=== PATIENT | female | born 1960 | race Caucasian/White ===

== ENCOUNTER 2022-05-02 13:30 | Emergency (ER) | payer OTHER ==
[~2022-05-02] VITALS: Ht 162.6 cm; Wt 130.2 kg
[2022-05-02 15:30] LABS: BASOPHILS ABSOLUTE AUTO 0.09 K/mm3 (0.00-0.23); BASOPHILS PERCENT AUTO 1 % (0-2); EOSINOPHILS ABSOLUTE AUTO 0.33 K/mm3 (0.00-0.68); EOSINOPHILS PERCENT AUTO 3 % (0-6); Hematocrit 33.9 % (33.0-51.0); Hemoglobin 11.2 g/dL (11.5-16.0); IMMATURE GRAN ABSOLUTE AUTO 0.12 K/mm3 (0.00-0.10); IMMATURE GRAN PERCENT AUTO 1 % (0-1); LYMPHOCYTES ABSOLUTE AUTO 3.17 K/mm3 (0.84-5.20); LYMPHOCYTES PERCENT AUTO 25 % (21-46); MONOCYTES ABSOLUTE AUTO 0.69 K/mm3 (0.16-1.47); MONOCYTES PERCENT AUTO 5 % (4-13); Mean Corpuscular HGB 28.2 pg (26.0-34.0); Mean Corpuscular Volume 85 fL (80-100); Mean Platelet Volume 11.4 fL (9.1-12.4); NEUTROPHILS ABSOLUTE AUTO 8.56 K/mm3 (1.96-9.15); NEUTROPHILS PERCENT AUTO 66 % (41-73); NRBC ABSOLUTE 0.03 K/mm3 (0.00-0.02); NRBC Auto 0.2 /100 WBC (0.0-0.2); Platelet Count 207 K/mm3 (150-400); RDW Coefficient Variation 14.8 % (11.7-14.2); RDW Standard Deviation 46.6 fL (35.1-46.3); Red Blood Cell Count 3.97 M/mm3 (3.80-5.20); White Blood Cell Count 12.96 K/mm3 (4.00-11.30)
[2022-05-02 15:38] LABS: Albumin, Blood 3.6 g/dL (3.4-5.0); Albumin/Globulin Ratio 1.1 (0.8-1.8); Bilirubin, Total 0.2 mg/dL (0.1-1.0); Bun/Creatinine Ratio 33.1 (12.0-20.0); Calcium, Blood 9.7 mg/dL (8.5-10.1); Creatinine, Blood 0.54 mg/dL (0.40-1.00); Globulin, Blood 3.4 g/dL (2.2-4.0); Potassium, Blood 4.4 mmol/L (3.5-5.5)
[2022-05-02] MEDS ORDERED: METFORMIN HCL500 M3 PO (18:10)
[2022-05-02] MEDS ORDERED: LOSA25 (18:11)
[2022-05-02] MEDS ORDERED: CELEXA40 M9 PO (18:11)
[2022-05-02] MEDS ORDERED: omeprazole 20 mg cap (18:11)
[2022-05-02] MEDS ORDERED: OZEMPIC1 MG/0.72 SQ (18:12)
[2022-05-02] MEDS ORDERED: MELOXICAM 15 MG (18:12)
[2022-05-02] MEDS ORDERED: NEURONTIN300 MG PO (18:12)
== END 2022-05-02 18:32 | disposition home or self-care (01) ==
LOC: ER 13:30
PROVIDERS: Physician Assistant
DX: K64.4 Residual hemorrhoidal skin tags (principal); D64.9 Anemia, unspecified; E11.9 Type 2 diabetes mellitus without complications; I11.0 Hypertensive heart disease with heart failure; I50.9 Heart failure, unspecified; Z88.8 Allergy status to other drugs, medicaments and biological substances
CPT/HCPCS: 36415; 80053; 83690; 85025

== ENCOUNTER 2022-11-30 11:05 | Inpatient (IN) | payer OTHER ==
[~2022-11-30] VITALS: Ht 162.6 cm; Wt 131.4 kg
[~2022-11-30 11:05] MED LIST changes: -ACET325 PO; -Ativan1 MG PO; -DOCU100 PO; -LOSA25 PO; -METO100ER PO; -PROP10 PO; -TRAZ50 PO
[2022-11-30 11:56] LABS: BASOPHILS ABSOLUTE AUTO 0.06 K/mm3 (0.00-0.23); BASOPHILS PERCENT AUTO 1 % (0-2); EOSINOPHILS PERCENT AUTO 3 % (0-6); Hematocrit 41.7 % (33.0-51.0); Hemoglobin 13.4 g/dL (11.5-16.0); IMMATURE GRAN ABSOLUTE AUTO 0.02 K/mm3 (0.00-0.10); IMMATURE GRAN PERCENT AUTO 0 % (0-1); LYMPHOCYTES ABSOLUTE AUTO 2.33 K/mm3 (0.84-5.20); LYMPHOCYTES PERCENT AUTO 26 % (21-46); MONOCYTES PERCENT AUTO 6 % (4-13); Mean Corpuscular HGB 26.2 pg (26.0-34.0); Mean Corpuscular HGB Conc 32.1 g/dL (31.5-36.5); Mean Corpuscular Volume 81 fL (80-100); NEUTROPHILS ABSOLUTE AUTO 5.82 K/mm3 (1.96-9.15); NEUTROPHILS PERCENT AUTO 65 % (41-73); Platelet Count 245 K/mm3 (150-400); RDW Coefficient Variation 16.8 % (11.7-14.2); RDW Standard Deviation 49.3 fL (35.1-46.3); Red Blood Cell Count 5.12 M/mm3 (3.80-5.20); White Blood Cell Count 9.03 K/mm3 (4.00-11.30)
[2022-11-30 12:11] LABS: Magnesium, Blood 1.8 mg/dL (1.6-2.4)
[2022-11-30 12:13] LABS: Albumin, Blood 3.4 g/dL (3.4-5.0); Albumin/Globulin Ratio 0.8 (0.8-1.8); Bilirubin, Total 0.6 mg/dL (0.1-1.0); Bun/Creatinine Ratio 25.7 (12.0-20.0); Calcium, Blood 9.2 mg/dL (8.5-10.1); Creatinine, Blood 0.55 mg/dL (0.40-1.00); Globulin, Blood 4.2 g/dL (2.2-4.0); Total Protein, Blood 7.6 g/dL (6.4-8.2)
[2022-11-30 13:17] LABS: Potassium, Blood 6.2 mmol/L (3.5-5.5)
[2022-11-30 16:04] LABS: Bun/Creatinine Ratio 17.8 (12.0-20.0); Calcium, Blood 10.2 mg/dL (8.5-10.1); Creatinine, Blood 0.67 mg/dL (0.40-1.00); Potassium, Blood 4.3 mmol/L (3.5-5.5)
[2022-11-30] MEDS ORDERED: NEURONTIN300 MG PO ×2 (22:15)
[2022-11-30] MEDS ORDERED: CELEXA40 M9 PO ×2 (22:19)
[2022-11-30] MEDS ORDERED: METO100ER PO ×2 (22:24)
[2022-12-01] VITALS (7 sets, daily range): BP systolic 138–170; BP diastolic 55–92
[2022-12-01 04:22] LABS: BASOPHILS ABSOLUTE AUTO 0.06 K/mm3 (0.00-0.23); BASOPHILS PERCENT AUTO 1 % (0-2); EOSINOPHILS ABSOLUTE AUTO 0.25 K/mm3 (0.00-0.68); EOSINOPHILS PERCENT AUTO 3 % (0-6); Hematocrit 37.5 % (33.0-51.0); Hemoglobin 11.7 g/dL (11.5-16.0); IMMATURE GRAN ABSOLUTE AUTO 0.02 K/mm3 (0.00-0.10); IMMATURE GRAN PERCENT AUTO 0 % (0-1); LYMPHOCYTES ABSOLUTE AUTO 2.84 K/mm3 (0.84-5.20); LYMPHOCYTES PERCENT AUTO 31 % (21-46); MONOCYTES ABSOLUTE AUTO 0.71 K/mm3 (0.16-1.47); MONOCYTES PERCENT AUTO 8 % (4-13); Mean Corpuscular HGB 25.7 pg (26.0-34.0); Mean Corpuscular HGB Conc 31.2 g/dL (31.5-36.5); Mean Corpuscular Volume 82 fL (80-100); NEUTROPHILS ABSOLUTE AUTO 5.22 K/mm3 (1.96-9.15); NEUTROPHILS PERCENT AUTO 57 % (41-73); Platelet Count 229 K/mm3 (150-400); RDW Coefficient Variation 16.2 % (11.7-14.2); RDW Standard Deviation 49.1 fL (35.1-46.3); Red Blood Cell Count 4.55 M/mm3 (3.80-5.20)
[2022-12-01 04:57] LABS: Magnesium, Blood 1.9 mg/dL (1.6-2.4)
[2022-12-01 04:58] LABS: Albumin/Globulin Ratio 0.9 (0.8-1.8); Bilirubin, Total 0.2 mg/dL (0.1-1.0); Bun/Creatinine Ratio 27.1 (12.0-20.0); Calcium, Blood 8.9 mg/dL (8.5-10.1); Creatinine, Blood 0.7 mg/dL (0.40-1.00); Globulin, Blood 3.4 g/dL (2.2-4.0); Total Protein, Blood 6.4 g/dL (6.4-8.2)
--- NOTE | 2022-12-01 05:15 | NUR ---
SHIFT SUMMARY PATIENT NEW ADMIT AT 2200 LAST NIGHT. TRANSFERS TO BED WITH 1 ASSIST. PATIENT VITALS STABLE AND DENIES SOB, CP, LIGHT HEADEDNESS/DIZZINESS. PATIENT DOES REPORT "FEELING EXHAUSETED". IV IN BILAT HANDS SALINE LOCKED. ABLE TO SWALLOW PILLS WHOLE WITH WATER. VOIDING USING BSC. TELE IN PLACE SR 80. NO ACUTE EVENTS. PATIENT ON 2 L NC WHILE SLEEPING SATS ABOVE 90%. BP STABLE CALL LIGHT IN REACH. WILL REPORT TO DAY RN.
--- NOTE | 2022-12-01 11:37 | NUR ---
PT UPDATE THIS RN SPOKE WITH PT REGARDING CURRENT CONDITION. PT APPEARED EMOTIONAL AND STATED THAT SHE FELT SHE HAS BEEN UNDER A TREMENDOUS AMOUNT OF STRESS AT HOME. 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 PT STATES SHE IS NOT READY TO LEAVE HER JOB IT IS SOMETHING SHE IS PASSIONATE ABOUT; DISCUSSED COPING STRATEGIES FOR STRESS AND POTENTIAL RESOURCES FOR STRESS MNGMNT. PT STATES THAT SHE IS NOW DOUBLE COVERED FOR INSURANCE, SO SHE CAN REFILL HER MEDICATIONS THAT HAVE BEEN OUT. DISCUSSED SPIRITUAL CARE VISIT PT INFORMED THIS RN THAT PRAYER IS HER MAIN COPING MECHANISM FOR STRESS; PT AGREED. SPIRITUAL CARE AT BEDSIDE AT THIS TIME. ANTICIPATING EEG AT 1330, DR. BAUTISTA TO DISCUSS RESULTS W/ PT FOLLOWING EEG.
--- NOTE | 2022-12-01 13:06 | NUR ---
Upon receiving a referral for spiritual care, I visited the patient. Her spouse Vince is bedside. She talks at length about the many stressors in her life, the loss of two very close family members and the five grandkids that she and Vince have been raising. 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 I normalize her experience, reinforce helpful attitudes and practices and provide therpaeutic listening, anxiety containment and prayer. Patient responded well and showed signs of reduced stress. We also worked on a spiritual care plan for after her d/c. I will continue to remain available to patient and family.
--- NOTE | 2022-12-01 17:27 | NUR ---
END OF SHIFT NOTE PT A&OX4, ABLE TO CALL APPROPRIATELY AND MAKE NEEDS KNOWN TO STAFF. Q4 NEURO CHECKS COMPLETED, REMAIN UNCHANGED FROM INITIAL ASSESSMENT. HR 70-80'S, NSR. SBP 140-150'S. SPO2 >92% ON RA-2L. PT DESATS WHILE SLEEPING ON RA, SPO2 STABLE ON 2L NC. PT ABLE TO AMBULATE WITH SBA TO RESTROOM, ABLE TO SHOWER THIS PM. UP TO CHAIR FOR DINNER FOLLOWING EEG. MRI SCREENING COMPLETED. NO ACUTE CHANGES THIS SHIFT, SEE PREVIOUS ASSESSMENT REGARDING PT STRESS MANAGEMENT. SPOUSE AT BEDSIDE, STIMULATION KEPT LOW THIS SHIFT. PT COMPLIANT WITH ALL PRESCRIBED MEDICATIONS TODAY. MEDICATED WITH TYLENOL PER EMAR FOR HEAD/BACK PAIN; LIDOCAINE PATCH REMOVED. CALL LIGHT WITHIN REACH, NO FURTHER NEEDS AT THIS TIME.
--- NOTE | 2022-12-01 22:22 | NUR ---
ASSUMPTION OF CARE ASSUMED CARE IN RN REPORT. SUNDEEP. PLEASANT, TEARFUL AT TIMES SHE IS PROCESSING HOME SITUATIONS WELL HAVING SEIZURES. THIS RN PROVIDED THERAPEUTIC LISTENING. PT VSS BESIDES HTN, MEDS PER EMAR, SBP <160 NOW. PT W/O SZ ACTIVITY AT THIS TIME. WENT TO MRI AT SHIFT CHANGE, RETURNED W/O INCIDENT VIA WC. PT RESTING IN BED POST MED ADMINISTRATION. BED ALARM ON.
--- NOTE | 2022-12-01 23:45 | NUR ---
transfer of care SEE PREVIOUS NOTE. NO CHANGES. STATIUS CHANGED TO MEDICAL WITH TELE. REPORT GIVEN TO BARRETT Alcaraz RN. TRANSFERED TO [facility] @ [id number].
[2022-12-02 00:02] VITALS: BP 162/97
--- NOTE | 2022-12-02 01:45 | NUR ---
ASSUMED CARE OF PATIENT UPON HER TRANSFER FROM PCU 20 AT 2348. ARRIVED TO MEDICAL FLOOR VIA W/C, TRANSFERRED TO BED WITH 1 PERSON ASSIST. USED BR WITH 1 PERSON ASSIST, GAIT A BIT UNSTEADY. TEARFUL AND ANXIOUS; THIS AUTHOR SPENT ABOUT 1 HOUR TALKING TO PATIENT ABOUT HER STRESSORS AND DX OF PSEUDOSEIZURES. GOT HER COMFORTABLE AND ADVISED HER TO GET SOME SLEEP. CALL LIGHT AND BELONGINGS IN REACH.
[2022-12-02 05:03] VITALS: BP 143/62
--- NOTE | 2022-12-02 05:38 | NUR ---
SHIFT SUMMARY: NO ACUTE EVENTS SINCE TRANSFER FROM PCU. NO EVENTS ON TELEMETRY, SR 80'S. NO SEIZURE ACTIVITY NOTED. AMBULATING TO BR WITH SBA, STATED SHE FEELS "WOBBLY." OFFERED PASTORAL CARE TO COME TALK WITH HER TODAY. SLEPT WELL.
[2022-12-02 07:30] VITALS: BP 138/62
[2022-12-02] MEDS ORDERED: ACET325 PO ×2 (14:31)
[2022-12-02] MEDS ORDERED: LOSA25 PO ×2 (14:33)
[2022-12-02] MEDS ORDERED: DOCU100 PO ×2 (14:34)
[2022-12-02] MEDS ORDERED: Ativan1 MG PO ×2 (14:35)
[2022-12-02] MEDS ORDERED: PROP10 PO ×2 (14:37)
[2022-12-02] MEDS ORDERED: TRAZ50 PO ×2 (14:39)
--- NOTE | 2022-12-02 15:42 | NUR ---
DC HOME WRITTEN & VERBAL DC INSTRUCTIONS GIVEN TO PT WITH PRESENT, BOTH VERBALIZED GOOD UNDERSTANDING. ALL CONCERNS & QUESTIONS ADDRESSED. PIV DC'D WITH CATH TIP INTACT, NO REDNESS OR SWELLING NOTED. 2 SCRIPTS PROVIDED TO PT 1 FOR MEDICATION & OTHER FOR WORK RELEASE. COPIES MADE & ON CHART. ALL OTHER NEW SCRIPTS FAXED TO [facility] IN [place] PER PT REQUEST. PT TO PV VIA W/C WITH ALL PERSONAL BELONGINGS ACCOMPANIED BY .
== END 2022-12-02 16:07 | disposition home or self-care (01) | DRG 101 ==
LOC: ER 11:05 → PCU 15:43 → MEDS 15:43 → ERHOLD 15:43 → PCU 22:00 → MEDS 12-01 23:43 → ENPENDDIS 12-02 12:49 → MEDS 12-02 16:07
PROVIDERS: Emergency Medicine; ADMIT Family Medicine
DX: R56.9 Unspecified convulsions (principal); Z68.42 Body mass index [BMI] 45.0-49.9, adult; I50.32 Chronic diastolic (congestive) heart failure; E87.5 Hyperkalemia; G43.909 Migraine, unspecified, not intractable, without status migrainosus; K21.9 Gastro-esophageal reflux disease without esophagitis; I11.0 Hypertensive heart disease with heart failure; G25.0 Essential tremor; I27.20 Pulmonary hypertension, unspecified; R00.0 Tachycardia, unspecified; M53.3 Sacrococcygeal disorders, not elsewhere classified; E66.9 Obesity, unspecified; F41.9 Anxiety disorder, unspecified; J44.9 Chronic obstructive pulmonary disease, unspecified; E78.5 Hyperlipidemia, unspecified; E11.40 Type 2 diabetes mellitus with diabetic neuropathy, unspecified; E04.2 Nontoxic multinodular goiter; G47.33 Obstructive sleep apnea (adult) (pediatric); K76.0 Fatty (change of) liver, not elsewhere classified; D32.0 Benign neoplasm of cerebral meninges; Z90.710 Acquired absence of both cervix and uterus; Z90.722 Acquired absence of ovaries, bilateral; Z90.79 Acquired absence of other genital organ(s); Z90.89 Acquired absence of other organs; Z88.8 Allergy status to other drugs, medicaments and biological substances; Z86.011 Personal history of benign neoplasm of the brain; Z79.84 Long term (current) use of oral hypoglycemic drugs; Z86.16 Personal history of COVID-19; Z91.199 Patient's noncompliance with other medical treatment and regimen due to unspecified reason
CPT/HCPCS: 36415; 70450; 70553; 71046; 76705; 80048; 80053; 82947; 83036; 83735; 84132; 85025; 93005; 93010; 94644; 94664; 94762; 95819; 96374; 96375; 99285-25; A9270; A9579; J0612; J1650; J1815; J1885; J1953; J7799

== ENCOUNTER → 2022-11-30 | Outpatient (CLI) | payer OTHER ==
[~2022-11-30] MED LIST: ACET325 PO; Ativan1 MG PO; CELEXA40 M9 PO; DOCU100 PO; LOSA25; LOSA25 PO; MELOXICAM 15 MG; METFORMIN HCL500 M3 PO; METO100ER PO; NEURONTIN300 MG PO; OZEMPIC1 MG/0.72 SQ; PROP10 PO; TRAZ50 PO; omeprazole 20 mg cap
[2022-11-30 10:29] LABS: Albumin, Blood 3.6 g/dL (3.4-5.0); Albumin/Globulin Ratio 0.8 (0.8-1.8); Bilirubin, Total 0.5 mg/dL (0.1-1.0); Bun/Creatinine Ratio 21.9 (12.0-20.0); Calcium, Blood 9.6 mg/dL (8.5-10.1); Creatinine, Blood 0.73 mg/dL (0.40-1.00); Globulin, Blood 4.4 g/dL (2.2-4.0); Magnesium, Blood 1.8 mg/dL (1.6-2.4); Potassium, Blood 4.8 mmol/L (3.5-5.5)
== END ==
LOC: LAB SHORT 10:02 → LAB 10:02
PROVIDERS: Chiropractor
DX: R56.9 Unspecified convulsions (principal)
CPT/HCPCS: 80053; 83735; 84146

== ENCOUNTER 2022-12-25 14:21 | Inpatient (IN) | payer OTHER ==
[~2022-12-25] VITALS: Ht 162.6 cm; Wt 131.9 kg
[~2022-12-25 14:21] MED LIST changes: -BACL10 PO; -ELIQUIS5 M2 PO; -Hydroxyzine HCl50 MG PO; -VALA500 PO
[2022-12-25] MEDS ORDERED: VALA500 PO (14:54)
[2022-12-25] MEDS ORDERED: Hydroxyzine HCl50 MG PO (14:54)
[2022-12-25 20:28] VITALS: BP 199/82
[2022-12-25 23:29] VITALS: BP 157/67
[2022-12-26 04:59] VITALS: BP 144/66
[2022-12-26 05:35] LABS: Bun/Creatinine Ratio 22.2 (12.0-20.0); Calcium, Blood 9.3 mg/dL (8.5-10.1); Creatinine, Blood 0.77 mg/dL (0.40-1.00); Potassium, Blood 3.8 mmol/L (3.5-5.5)
--- NOTE | 2022-12-26 06:39 | NUR ---
Rn summary: Patient arrived after 1999 from the ED via stretcher. Patient was able to transfer self to the bed and the BSC. Pt voiding clear yellow urine. Patient is SOB with activity and just with talking. Patient started on lovenox for tomeka small kjP.E.'s tomeka lower lungs. Pt was here recently for seizure activity. Pt has some lower extremity edema, 2 plus. O2 sat is low 90's on 2 liters. Breath sounds are very diminshed throughout. Patient states she rested really well. Call light in reach and able to make needs known.
[2022-12-26 07:38] VITALS: BP 149/61
[2022-12-26 15:15] VITALS: BP 158/73
--- NOTE | 2022-12-26 18:15 | NUR ---
SHIFT SUMMARY; PATIENT COOPERATIVE WITH CARE AND HAS PLEASANT AFFECT THROUGHOUT THE DAY. SHE RECEIVED AN ULTRASOUND OF HER BILATERAL LEGS TODAY TO CHECK FOR DVT' AND BLOOD FLOW. BOTH WERE UNREMARKABLE. PATIENT IS INDEPENDANT TO BATHROOMO USING FWW. SHE REMAINS ON 2 LITERS O2 VIA NASAL CANNULA. HER SPOUSE IS NOTED TO ASSIST HER WHEN HE IS IN ROOM. OTHERWISE SHE DOES CALL FOR ASSIST. HER CHEMBG WAS LOW A 95 THIS AFTERNOON AND SHE DID NOT RECEIVE ANY INSULIN. SHE HAS A GOOD APPETITE. SHE REMAINS IN SINUS RHYTHM. DENIES ANY CHEST PAIN OR PRESSURE.
[2022-12-26 19:33] VITALS: BP 150/71
--- NOTE | 2022-12-27 04:52 | NUR ---
SHIFT SUMMARY 62 YR F ADMITTED ON 12/25/22 FOR PULMONARY EMBOLISMS. FULL CODE. NO ACUTE CHANGES THIS SHIFT. PT APPEARED ANXIOUS AT BEGINNING OF SHIFT BUT WAS ABLE TO GO TO SLEEP AND STAY ASLEEP FOR MOST OF THIS SHIFT. SHE IS INDEPENDANT TO THE BATHROOM BUT IS STILL DESATING W/ EXERTION. NO EVIDENCE OF SEIZURE ACTIVITY THIS SHIFT.
[2022-12-27 08:13] VITALS: BP 157/78
[2022-12-27 09:20] VITALS: BP 187/91
[2022-12-27 09:34] VITALS: BP 174/75
[2022-12-27 11:46] LABS: Albumin, Blood 3.4 g/dL (3.4-5.0); Albumin/Globulin Ratio 0.9 (0.8-1.8); Bilirubin, Total 0.4 mg/dL (0.1-1.0); Bun/Creatinine Ratio 21.5 (12.0-20.0); Calcium, Blood 9.1 mg/dL (8.5-10.1); Creatinine, Blood 0.84 mg/dL (0.40-1.00); Globulin, Blood 3.9 g/dL (2.2-4.0); Potassium, Blood 4.2 mmol/L (3.5-5.5); Total Protein, Blood 7.3 g/dL (6.4-8.2)
[2022-12-27 11:50] LABS: BASOPHILS ABSOLUTE AUTO 0.08 K/mm3 (0.00-0.23); BASOPHILS PERCENT AUTO 1 % (0-2); EOSINOPHILS ABSOLUTE AUTO 0.28 K/mm3 (0.00-0.68); EOSINOPHILS PERCENT AUTO 4 % (0-6); Hematocrit 41.3 % (33.0-51.0); Hemoglobin 13.1 g/dL (11.5-16.0); IMMATURE GRAN ABSOLUTE AUTO 0.03 K/mm3 (0.00-0.10); IMMATURE GRAN PERCENT AUTO 0 % (0-1); LYMPHOCYTES ABSOLUTE AUTO 2.39 K/mm3 (0.84-5.20); LYMPHOCYTES PERCENT AUTO 30 % (21-46); MONOCYTES ABSOLUTE AUTO 0.52 K/mm3 (0.16-1.47); MONOCYTES PERCENT AUTO 7 % (4-13); Mean Corpuscular HGB 26.2 pg (26.0-34.0); Mean Corpuscular HGB Conc 31.7 g/dL (31.5-36.5); Mean Corpuscular Volume 83 fL (80-100); Mean Platelet Volume 11.8 fL (9.1-12.4); NEUTROPHILS PERCENT AUTO 58 % (41-73); Platelet Count 233 K/mm3 (150-400); RDW Coefficient Variation 17.1 % (11.7-14.2); RDW Standard Deviation 51.2 fL (35.1-46.3)
[2022-12-27 16:11] VITALS: BP 166/73
--- NOTE | 2022-12-27 17:31 | NUR ---
SHIFT SUMMARY; PATIENT HAD SEIZURE LIKE ACTIVITY THIS AM. NO POST DICTAL RESPONSE. EPISODE LAST APPROX 1 MINUTE. PATIENT THREW HER HEAD BACK AND MADE GROANING NOISE. SHE WAS SITTING ON EDGE OF BED AND ABLE TO KEEP HERSELF FROM FALLING BACKWARDS ON BED. PATIENT VERY TEARFUL DURING DAY AND COMPLAINS OF ANXIETY. MEDICATED X 1 WITH ATARAX FOR ANXIETY WITH GOOD RESULTS. HER B/P IS ELEVATED THIS AFTERNOON. NO CHEST PAIN OR PRESSURE NOTED. FAMILY COMES TO VISIT AND PATIENT VERY TEARY ASKING THEM FOR UNDERSTANDING AND PATIENCE WITH HER.
[2022-12-27 20:01] VITALS: BP 184/60
[2022-12-28 03:48] VITALS: BP 183/67
--- NOTE | 2022-12-28 04:24 | NUR ---
SHIFT SUMMARY 62 YR F ADMITTED ON 12/26/22 FOR PULMONARY EMBOLISM. FULL CODE. NO ACUTE CHANGES THIS SHIFT. PT IS VERY PLEASANT AND COOPERATIVE WITH THIS NURSE. SHE STATED THAT SHE HAS BEEN UNCOMFORTABLE WITH A COUPLE OF STAFF MEMBERS SHE DID NOT FEEL THAT THEY LISTENED TO HER. SHE EXPRESSED THAT SHE WAS COMFORTABLE W/ TONIGHTS STAFF AND SHE WAS ABLE TO SLEEP FOR MOST OF THE NIGHT. NO SIGNS OF SEIZURE ACTIVITY THIS SHIFT.
[2022-12-28 08:14] VITALS: BP 177/74
[2022-12-28 12:14] VITALS: BP 151/78
[2022-12-28] MEDS ORDERED: BACL10 PO (14:23)
[2022-12-28] MEDS ORDERED: ELIQUIS5 M2 PO (14:23)
--- NOTE | 2022-12-28 15:22 | NUR ---
DISCHARGE SUMMARY PT AxOx4. PLEASANT AND COOPERATIVE WITH CARE. PT IS DISCHARGING HOME TODAY WITH SPOUSE. PT HAD HOME O2 EVAL, RESULTING IN NO HOME O2 NEEDS AT THIS TIME. PT WAS GIVEN HER DC INSTRUCTIONS INCLUDING UPDATED DC MEDICATION LIST, FOLLOW UP WITH PCP APPT INFO, AND PATIENT EDUCATION HAND OUTS. PT VERBALIZES UNDERSTANDING. DENIES ANY FURTHER QUESTIONS AT TIME OF DC. PT WAS SAFELY ESCORTED OUT VIA WC BY THIS RN.
== END 2022-12-28 15:15 | disposition home or self-care (01) | DRG 175 ==
LOC: ER 14:21 → MEDS 19:03 → ENPENDDIS 12-28 13:00 → MEDS 12-28 15:15
PROVIDERS: Family Medicine; Nurse Practitioner Acute Care; ADMIT Internal Medicine
DX: I26.99 Other pulmonary embolism without acute cor pulmonale (principal); J96.01 Acute respiratory failure with hypoxia; I50.32 Chronic diastolic (congestive) heart failure; Z68.42 Body mass index [BMI] 45.0-49.9, adult; R56.9 Unspecified convulsions; R91.1 Solitary pulmonary nodule; F41.9 Anxiety disorder, unspecified; E11.9 Type 2 diabetes mellitus without complications; E66.01 Morbid (severe) obesity due to excess calories; R79.1 Abnormal coagulation profile; I11.0 Hypertensive heart disease with heart failure; G43.909 Migraine, unspecified, not intractable, without status migrainosus; G25.0 Essential tremor; K21.9 Gastro-esophageal reflux disease without esophagitis; J44.9 Chronic obstructive pulmonary disease, unspecified; D32.0 Benign neoplasm of cerebral meninges; Z88.8 Allergy status to other drugs, medicaments and biological substances; Z79.84 Long term (current) use of oral hypoglycemic drugs
CPT/HCPCS: 36415; 71260; 80048; 80053; 82947; 84146; 84484; 85025; 93005; 93010; 93970; 94640; 94664; 94761; 94762; 99285-25; A9270; J1650; Q9967

== ENCOUNTER → 2022-12-25 | Outpatient (CLI) | payer OTHER ==
[~2022-12-25] MED LIST changes: +ACET325 PO; +Ativan1 MG PO; +BACL10 PO; +DOCU100 PO; +ELIQUIS5 M2 PO; +Hydroxyzine HCl50 MG PO; +LOSA25 PO; +METO100ER PO; +PROP10 PO; +TRAZ50 PO; +VALA500 PO
[2022-12-25 13:12] LABS: BASOPHILS ABSOLUTE AUTO 0.08 K/mm3 (0.00-0.23); BASOPHILS PERCENT AUTO 1 % (0-2); EOSINOPHILS PERCENT AUTO 3 % (0-6); Hemoglobin 13.8 g/dL (11.5-16.0); IMMATURE GRAN ABSOLUTE AUTO 0.03 K/mm3 (0.00-0.10); IMMATURE GRAN PERCENT AUTO 0 % (0-1); LYMPHOCYTES ABSOLUTE AUTO 2.52 K/mm3 (0.84-5.20); LYMPHOCYTES PERCENT AUTO 26 % (21-46); MONOCYTES ABSOLUTE AUTO 0.64 K/mm3 (0.16-1.47); MONOCYTES PERCENT AUTO 7 % (4-13); Mean Corpuscular HGB 26.4 pg (26.0-34.0); Mean Corpuscular HGB Conc 32.1 g/dL (31.5-36.5); Mean Corpuscular Volume 82 fL (80-100); Mean Platelet Volume 11.1 fL (9.1-12.4); NEUTROPHILS ABSOLUTE AUTO 5.98 K/mm3 (1.96-9.15); NEUTROPHILS PERCENT AUTO 63 % (41-73); Platelet Count 227 K/mm3 (150-400); RDW Coefficient Variation 17.2 % (11.7-14.2); RDW Standard Deviation 50.1 fL (35.1-46.3); Red Blood Cell Count 5.23 M/mm3 (3.80-5.20); White Blood Cell Count 9.55 K/mm3 (4.00-11.30)
[2022-12-25 13:29] LABS: Albumin, Blood 3.7 g/dL (3.4-5.0); Albumin/Globulin Ratio 0.9 (0.8-1.8); Bilirubin, Total 0.4 mg/dL (0.1-1.0); Bun/Creatinine Ratio 20.7 (12.0-20.0); Calcium, Blood 9.6 mg/dL (8.5-10.1); Creatinine, Blood 0.87 mg/dL (0.40-1.00); Globulin, Blood 4.3 g/dL (2.2-4.0); Potassium, Blood 4.4 mmol/L (3.5-5.5); Thyroid Stimulating Hormone 1.257 uIU/mL (0.360-4.800)
== END | disposition home or self-care (01) ==
LOC: LAB 13:06 → LAB SHORT 13:06
PROVIDERS: Physician Assistant
DX: R07.9 Chest pain, unspecified (principal)
CPT/HCPCS: 80053; 83880; 84443; 84484; 85025; 85379

== ENCOUNTER 2024-06-26 09:47 | Observation (INO) | payer OTHER ==
[~2024-06-26] VITALS: Ht 162.6 cm; Wt 136.8 kg
[~2024-06-26 09:47] MED LIST changes: +BACL10 PO; +ELIQUIS5 M2 PO; +Hydroxyzine HCl50 MG PO; +VALA500 PO
[2024-06-26] MEDS ORDERED: LORazepam 2 MG/ML 1ML Injection IV ONE (09:55)
[2024-06-26] MEDS ORDERED: levETIRAcetam 4,500 MG in NS 100 ML IV ONE (10:15)
[2024-06-26 10:54] LABS: BASOPHILS ABSOLUTE AUTO 0.08 K/mm3 (0.00-0.23); BASOPHILS PERCENT AUTO 1 % (0-2); EOSINOPHILS ABSOLUTE AUTO 0.19 K/mm3 (0.00-0.68); EOSINOPHILS PERCENT AUTO 2 % (0-6); Hematocrit 42.5 % (33.0-51.0); Hemoglobin 13.5 g/dL (11.5-16.0); IMMATURE GRAN ABSOLUTE AUTO 0.02 K/mm3 (0.00-0.10); IMMATURE GRAN PERCENT AUTO 0 % (0-1); LYMPHOCYTES ABSOLUTE AUTO 2.22 K/mm3 (0.84-5.20); LYMPHOCYTES PERCENT AUTO 28 % (21-46); MONOCYTES ABSOLUTE AUTO 0.47 K/mm3 (0.16-1.47); MONOCYTES PERCENT AUTO 6 % (4-13); Mean Corpuscular HGB 27.1 pg (26.0-34.0); Mean Corpuscular HGB Conc 31.8 g/dL (31.5-36.5); Mean Corpuscular Volume 85 fL (80-100); NEUTROPHILS ABSOLUTE AUTO 4.94 K/mm3 (1.96-9.15); NEUTROPHILS PERCENT AUTO 62 % (41-73); Platelet Count 224 K/mm3 (150-400); RDW Coefficient Variation 14.7 % (11.7-14.2); RDW Standard Deviation 45.5 fL (35.1-46.3); Red Blood Cell Count 4.99 M/mm3 (3.80-5.20); White Blood Cell Count 7.92 K/mm3 (4.00-11.30)
[2024-06-26 11:12] LABS: Albumin, Blood 3.4 g/dL (3.4-5.0); Albumin/Globulin Ratio 0.9 (0.8-1.8); Bilirubin, Total 0.5 mg/dL (0.1-1.0); Bun/Creatinine Ratio 23.6 (12.0-20.0); Calcium, Blood 8.9 mg/dL (8.5-10.1); Creatinine, Blood 0.64 mg/dL (0.40-1.00); Globulin, Blood 3.8 g/dL (2.2-4.0); Potassium, Blood 4.1 mmol/L (3.5-5.5); Total Protein, Blood 7.2 g/dL (6.4-8.2)
[2024-06-26] MEDS ORDERED: LEVE500 PO (13:15)
[2024-06-26 13:23] LABS: Source, Urine Clean Catch
[2024-06-26 13:29] LABS: Appearance, Urine Clear (Clear); Bilirubin, Urine Neg (Neg); Blood, Urine Neg (Neg); Color, Urine Pale Yellow (P-Yellow); Glucose Qualitative, Urine Neg (Neg); Ketones, Urine Neg (Neg); Leukocyte Esterase, Urine Neg (Neg); Nitrite, Urine Neg (Neg); Protein, Urine Neg (Neg); Urobilinogen, Urine NORM (Normal)
[2024-06-26] MEDS ORDERED: LORazepam 2 MG/ML 1ML Injection IV PRN (15:10)
[2024-06-26] MEDS ORDERED: NS 1,000 ML IV SCH (15:10)
[2024-06-26] MEDS ORDERED: NS 1,000 ML IV ONE (15:25)
[2024-06-26] MEDS ORDERED: Ibuprofen 400 MG Tab PO PRN (18:00)
[2024-06-26] MEDS ORDERED: Acetaminophen 325 MG TABLET PO PRN (18:00)
[2024-06-26 18:31] LABS: Prolactin 12.9 ng/mL (2.74-19.64)
[2024-06-26 18:59] VITALS: BP 161/81
--- NOTE | 2024-06-26 19:50 | NUR ---
SHIFT SUMMARY PATIENT CAME UP FROM ED RIGHT BEFORE SHIFT CHANGE AOX4 ABLE TO MAKE NEEDS KNOWN AND STOOD AND PIVOTED TO THE BED. SHE DENIED ANY PAIN OR SOB. WHEN SHE SAT IN BED SHE STARED HAVING CLUSTER SIEZURES. SHE HAD 4 CLUSTER SIEZURES EACH LASTING LESS THAN A MINUTE AND ABOUT A MINUTE APART. SHE THEN GOT A DOSE OF ATIVAN 2MG. AFTER THE ATIVAN SHE THEN HAD ANOTHER CLUSTER OF 4 SEIZURES IT WAS AFTER 7PM SO THE NIGHT RESIDENT WAS CALLED AND SHE CAME AND SEEN THE PATIENT AT BEDSIDE. WHEN HAVING THE SEIZURE THE PATIENT HAS A RIGHT HAND TREMOR AND A BLANK STARE AND LEAVES MOUTH OPEN. HER O2 SAT DURING EACH SEIZURE WAS GREATER THAN 92% ON ROOM AIR. REPORT WAS GIVEN TO CUT ROLL MACHINE OFFBEARER AND AWAITING THE DOCTORS ORDERS.
[2024-06-26 20:00] VITALS: BP 159/94
[2024-06-26 20:18] LABS: Base Excess Venous 3.4 mmol/L; Bicarbonate Venous 26.7 mmol/L (24.0-30.0); PCO2 Venous 45.9 mmHg (38-42)
[2024-06-26 20:44] LABS: Bun/Creatinine Ratio 18.1 (12.0-20.0); Calcium, Blood 8.8 mg/dL (8.5-10.1); Creatinine, Blood 0.66 mg/dL (0.40-1.00); Potassium, Blood 3.8 mmol/L (3.5-5.5)
[2024-06-26] MEDS ORDERED: Insulin Human Lispro 100 Units/ML 3ML Syringe SC SCH (21:00)
[2024-06-26] MEDS ORDERED: Gabapentin 300 MG Cap PO SCH (21:00)
[2024-06-26] MEDS ORDERED: LevETIRAcetam 500 MG Tab PO SCH (21:00)
--- NOTE | 2024-06-26 22:58 | NUR ---
ASSUMPTION OF CARE PT ALERT, ORIENTED X4. SHE IS SLEEPY, POSTICTAL PHASE. SHE IS COOPERATIVE TO CARE. PT WITH A TREMOR OF BILATERAL HANDS, PT STATED THAT THE TREMORS WORSE PRIOR TO ONSET OF SEIZURES. HR IN THE 70'S, SINUS RHTYHM. SHE DENIES CP/PRESSURE, NUMB/TINGLING, SBP STABLE. O2 >90% ON 1L VIA NC, PT ON NOT ON 02 AT BASELINE. PT WAS DESATING DURING ICTAL PHASE OF SEIZURE, 1L PLACED PRESUMPTIVELY. DECREASED STIMULI IN ROOM BY DIMMING LIGHTS, DECREASING TEMPERATURE, KEEPING TV AND NOISE DECREASED. PT HAS BEEN RESTING IN BED THIS FAR. NO SEIZURE ACTIVITY NOTED. CALL LIGHT IN REACH, BED IN LOWEST POSITION, SEIZURE PADS ON PLACE. WILL MONITOR PT.
[2024-06-27] VITALS (7 sets, daily range): BP systolic 134–161; BP diastolic 58–84
--- NOTE | 2024-06-27 00:34 | NUR ---
UPDATE THIS RN WENT TO PTS ROOM. PT CHANGED IN TO HOSPITAL GOWN. PT UP TO BATHROOM WITH NURSE ASSIST. PT SITUATED IN BED AND REPOSITIONED. PT HAVING FULL CONVERSATION WITH THIS RN AND PT STARTED HAVING A SEIZURE AT 0026. PT HAND STARTED TO TREMOR AND THEN HEAD SHAKING FOLLOWED. PT IN ICTAL PHASE FOR APPROX 1 MINUTE. ATIVAN WAS PULLED BUT PTS SEIZURE HAD STOPPED ALREADY. PT HAVING CONVERSATION WITH RN. PT THEN BEGAN TO HAVE ANOTHER SEIZURE STARTING AT 0028. 2MG OF ATIVAN GIVEN. PTS SEIZURE LASTED APPROX 1 MINUTE 15 SECONDS. HR IN THE 90'S, BP FIRST ELEVATED, REDID BP AND STABLE AT 161/71, O2 >90% ON 1L VIA NC. PT ALERT AND ANSWERING ORIENTATION QUESTIONS. NEW IV PLACED IN LEFT FOREARM. PT C/O HEADACHE/BODY ACHES, PRN TYLENOL GIVEN. PT RESTING IN BED AT THIS TIME. WILL MONITOR PT.
--- NOTE | 2024-06-27 06:04 | NUR ---
SHIFT SUMMARY PT VERY SLEEPY T/O SHIFT, EASILY AROUSABLE WITH VERBAL STIMULI. WHEN PT AWAKE SHE IS ORIENTED X4. HR IN THE 70'S, SR. SHE DENIED ANY CP/PRESSURE, NUMB/TINGLING, SBP STABLE. O2 >90% ON 1L. PT PLACED ON 1L PRESUMPTIVELY SHE WAS DESATING DURING HER SEIZURES. PT HAD TWO SEIZURES T/O SHIFT, 2MG OF ATIVAN GIVEN. PT HAS BEEN SLEEPY SINCE BUT AROUSABLE. PT REPORTS GENRALIZED BODY ACHES FROM TENSING OF MUSCLES DURING SEIZURE ACTIVITY T/O THE DAY YESTERDAY. MEDICATED PER EMAR. SEIZURE PADS IN PLACE, BED IN LOWEST POSITION. WILL MONITOR PT AND REPORT TO ONCOMING RN.
[2024-06-27] MEDS ORDERED: Propranolol HCL 20 MG TAB PO SCH (07:30)
[2024-06-27] MEDS ORDERED: Citalopram Hydrobromide 20 MG Tab PO SCH (09:00)
[2024-06-27] MEDS ORDERED: Enoxaparin 40 MG/0.4 ML SYR SC SCH (09:00)
[2024-06-27] MEDS ORDERED: Losartan Potassium 25 MG Tab PO SCH (09:00)
[2024-06-27] MEDS ORDERED: AmLODIPine Besylate 5 MG Tab PO SCH (09:00)
--- NOTE | 2024-06-27 09:10 | NUR ---
ASSUMPTION OF CARE PATIENT AOX4 ABLE TO MAKE NEEDS KNOWN SHE DENIES CHEST PAIN OR SOB. VITALS STABLE ABLE TO AMBULATE TO THE BATHROOM WITH 1ASSIST HAD SEIZURE WHEN RETURNED FROM BATHROOM AT 0720 GAVE ATIVAN AND ANOTHER SEIZURE AT 0740. ABLE TO TAKE PO MEDS INCLUDING HER KEPPRA. PATIENT HAD ANOTHER SIEZURE AT 0825. SHE WANTS TO EAT BUT SHE WAS INSTRUCTED TO WAIT UNTIL FREE FROM SEIZURES.
--- NOTE | 2024-06-27 10:14 | NUR ---
UPDATE ON SEIZURE ACTIVITY CALLED HOSPITALIST ABOUT PATIENT HAVING ANOTHER SEIZURE AT 0950 AND GAVE ANOTHER DOSE OF 2MG ATIVAN
[2024-06-27] MEDS ORDERED: KEPPRA PO (10:52)
--- NOTE | 2024-06-27 12:26 | NUR ---
HOSPITALIST UPDATE THE HOSPITALIST CAME TO SEE THE PATIENT AT [facility]. HE TALKED WITH THE PATIENT AND AND ORDERED AN EEG AND SAID SHE CAN BE DISCHARGED BACK HOME AFTER EEG.
--- NOTE | 2024-06-27 14:50 | NUR ---
UPDATE PATIENT COMPLETED EEG. PATIENT DID HAVE DISCHARGE ORDERS BUT THEY WERE DISCONTINUED BECAUSE THE PATIENT IS TO WEAK TO GO HOME WITH JUST THE . THE PATIENT AND THE DID NOT FEEL SAFE ENOUGH. ALSO THE PATIENT DESATS WHEN SLEEPING ON ROOM AIR. THE HOSPITALIST IS AWARE AND ORDERED PT/OT EVAL AND SLEEP STUDY
[2024-06-27] MEDS ORDERED: LORazepam 2 MG/ML 1ML Injection IV PRN (14:55)
--- NOTE | 2024-06-27 19:27 | NUR ---
SHIFT SUMMARY PATIENT AOX4 ABLE TO MAKE NEEDS KNOWN.VITALS ARE STABLE EXCEPT SHE DOES DESAT TO MID 80% on room air when sleeping HOSPITALIST AWARE. PATIENT IS WEAK AMBULATING TO THE BESIDE COMMODE AND WILL NEED PT OT EVAL. EACH SEIZURE TODAY DIDNT LAST FOR MORE THAN A MINUTE. SHE COMPLETED THE EEG. REPORT GIVEN TO THE NIGHT NURSE ALL QUESTIONS ANSWERED.
[2024-06-28 03:20] VITALS: BP 151/64
[2024-06-28 05:00] LABS: BASOPHILS ABSOLUTE AUTO 0.06 K/mm3 (0.00-0.23); BASOPHILS PERCENT AUTO 1 % (0-2); EOSINOPHILS ABSOLUTE AUTO 0.19 K/mm3 (0.00-0.68); EOSINOPHILS PERCENT AUTO 3 % (0-6); Hematocrit 41.1 % (33.0-51.0); Hemoglobin 13.2 g/dL (11.5-16.0); IMMATURE GRAN ABSOLUTE AUTO 0.02 K/mm3 (0.00-0.10); IMMATURE GRAN PERCENT AUTO 0 % (0-1); LYMPHOCYTES ABSOLUTE AUTO 2.21 K/mm3 (0.84-5.20); LYMPHOCYTES PERCENT AUTO 30 % (21-46); MONOCYTES ABSOLUTE AUTO 0.54 K/mm3 (0.16-1.47); MONOCYTES PERCENT AUTO 7 % (4-13); Mean Corpuscular HGB 27.5 pg (26.0-34.0); Mean Corpuscular HGB Conc 32.1 g/dL (31.5-36.5); Mean Corpuscular Volume 86 fL (80-100); Mean Platelet Volume 10.9 fL (9.1-12.4); NEUTROPHILS ABSOLUTE AUTO 4.26 K/mm3 (1.96-9.15); NEUTROPHILS PERCENT AUTO 59 % (41-73); Platelet Count 210 K/mm3 (150-400); RDW Coefficient Variation 14.6 % (11.7-14.2); RDW Standard Deviation 45.6 fL (35.1-46.3); White Blood Cell Count 7.28 K/mm3 (4.00-11.30)
--- NOTE | 2024-06-28 05:12 | NUR ---
SHIFT SUMMARY PT A&O X4, CALM, COOPERATIVE TO CARE. HR IN THE 80'S, SR. SHE DENIES CP/PRESSURE, NUMB/TINGLING, SBP STABLE. 02 >90% ON RA. PT DESATS OCASIONALLY T/O NIGHT WITH SLEEP BUT RECOVERS QUICKLY. SHE DENIES ANY SOB. PT DID NOT HAVE ANY SEIZURES T/O SHIFT AND RESTED MOST OF NIGHT. NO ACUTE CHANGES. WILL MONITOR PT AND REPORT TO ONCOMING RN.
[2024-06-28 05:26] LABS: Albumin, Blood 3.1 g/dL (3.4-5.0); Albumin/Globulin Ratio 0.9 (0.8-1.8); Bilirubin, Total 0.4 mg/dL (0.1-1.0); Bun/Creatinine Ratio 19.2 (12.0-20.0); C-REACTIVE PROTEIN, EXT RANGE 1.4 mg/dL (0.000-0.300); Calcium, Blood 8.8 mg/dL (8.5-10.1); Creatinine, Blood 0.62 mg/dL (0.40-1.00); Globulin, Blood 3.6 g/dL (2.2-4.0); Potassium, Blood 3.9 mmol/L (3.5-5.5); Total Protein, Blood 6.7 g/dL (6.4-8.2)
[2024-06-28 06:59] VITALS: BP 162/70
--- NOTE | 2024-06-28 07:18 | NUR ---
update pt desated to 88%. this rn went to room to check on pt. went to place pt on o2 and she started having a seizure. pt seizure last about a minute. pt a&o when seizure ended. vss. no ativan given per order parameters. pt resting in bed at this time. call light in reach. report given to hilda shanks.
[2024-06-28 08:08] VITALS: BP 154/82
[2024-06-28] MEDS ORDERED: Amaryl1 MG PO (09:46)
[2024-06-28] MEDS ORDERED: OZEMPIC0.25 MG/02 SC (09:58)
[2024-06-28] MEDS ORDERED: METF500C PO (09:58)
[2024-06-28] MEDS ORDERED: ESCI20 PO (10:22)
[2024-06-28] MEDS ORDERED: BUSP5 PO (10:23)
[2024-06-28] MEDS ORDERED: AMLO10 PO (10:31)
== END 2024-06-28 11:15 | disposition home or self-care (01) ==
LOC: ER 09:47 → ERHOLD 09:48 → PCU 18:28
PROVIDERS: Hospitalist; Student in an Organized Health Care Education/Training Program; ADMIT Internal Medicine
DX: G40.901 Epilepsy, unspecified, not intractable, with status epilepticus (principal); F32.9 Major depressive disorder, single episode, unspecified; J44.9 Chronic obstructive pulmonary disease, unspecified; I11.0 Hypertensive heart disease with heart failure; I50.30 Unspecified diastolic (congestive) heart failure; E11.42 Type 2 diabetes mellitus with diabetic polyneuropathy; K21.9 Gastro-esophageal reflux disease without esophagitis; Z79.84 Long term (current) use of oral hypoglycemic drugs; Z79.899 Other long term (current) drug therapy; Z88.8 Allergy status to other drugs, medicaments and biological substances
CPT/HCPCS: 36415; 70450; 80048; 80053; 81003; 82550; 82803; 82947; 83605; 83735; 84146; 85025; 85651; 86140; 95819; 96372; 96374; 96376; 97116; 97161; 97530; 99285-25; A9270; G0378; J1650; J1953; J2060; J7030